=== PATIENT | male | born 1990 | race Two or more races ===

== ENCOUNTER 2017-02-16 20:37 | Emergency (ER) | payer MEDICAID, OTHER ==
[~2017-02-16] VITALS: Ht 182.9 cm; Wt 87.1 kg
[2017-02-16 21:30] VITALS: BP 132/78
[2017-02-16] MEDS: TETANUS-DIPTH-ACEL PERTUSSIS 0.5ML SYRG IM ONE (22:08)
[2017-02-16] MEDS: BACITRACIN TOP OINT 1 UD PKG TOP ONE (22:09)
== END 2017-02-16 22:28 | disposition home or self-care (01) ==
LOC: ER 20:59
DX: S61.012A Laceration without foreign body of left thumb without damage to nail, initial encounter (principal); W22.8XXA Striking against or struck by other objects, initial encounter; Y93.89 Activity, other specified; Y92.89 Other specified places as the place of occurrence of the external cause; Y99.8 Other external cause status
CPT/HCPCS: 90471; 90715